=== PATIENT | female | born 1955 | race Caucasian/White ===

== ENCOUNTER → 2019-12-05 10:29 | Outpatient (CLI) | payer BC, SELFPAY ==
--- NOTE | ~2019-12-05 | US_ITS ---
EXAMINATION: US thyroid DATE: 12/05/2019 10:54 INDICATION: Hypothyroidism. TECHNIQUE: Multiple ultrasound images of the thyroid were obtained. COMPARISON: Ultrasound 04/06/2010 FINDINGS: The right thyroid lobe measures 2.1 x 1.0 x 0.9 cm. The left thyroid lobe measures 2.5 x 1.0 x 1.0 c m. The thyroid demonstrates diffusely heterogeneous echogenicity and increased vascularity. IMPRESSION: 1. Heterogeneous, hypervascular thyroid, consistent with chronic lymphocytic (Lianne) thyroiditis. Reviewed, dictated and finalized at location A. 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 Heterogeneous, hypervascular thyroid, consistent with chronic lymphocytic (H ashimoto) thyroiditis.
== END ==
PROVIDERS: PCP Family Medicine; Visit Provider Family Medicine
DX: R09.89 Other specified symptoms and signs involving the circulatory and respiratory systems (principal)
CPT/HCPCS: 76536

== ENCOUNTER 2021-01-13 09:29 | Outpatient (CLI) | payer BC, SELFPAY ==
--- NOTE | ~2021-01-13 | MM_ITS ---
EXAMINATION: MM screening [facility] w iveth HISTORY: Screening TECHNIQUE: Craniocaudal and mediolateral oblique 3-D tomosynthesis images were obtained and synthetic 2-D images were generated. CAD analysis was submitted and interpreted. COMPARISON: Comparison to multiple prior studies sequentially, with oldest reviewed study dated 12/30. BREAST PARENCHYMAL COMPOSITION: There are scattered areas of fibroglandular density. FINDINGS: There is no evidence of suspicious mass, calcification, or architectural distortion to sugg est malignancy in either breast. There has been no suspicious interval change. IMPRESSION: 1. No mammographic evidence of malignancy. 2. Recommend routine screening mammography in one year. BI-RADS Category 1: Negative Reviewed, dictated and finalized at location A.
== END 2021-01-13 09:30 | disposition home or self-care (01) ==
LOC: ANHIMG 09:31
PROVIDERS: PCP Family Medicine; Visit Provider Family Medicine
DX: Z12.31 Encounter for screening mammogram for malignant neoplasm of breast (principal)
CPT/HCPCS: 77063; 77067

== ENCOUNTER 2021-07-12 09:07 | Outpatient (RCR) | payer BC, SELFPAY ==
[2021-07-12] MEDS: diphenhydrAMINE HCl CAP 25 MG CAPSULE PO (11:16)
[2021-07-12] MEDS: FAMOTIDINE 20 MG TABLET PO (11:16)
[2021-07-12] MEDS: ACETAMINOPHEN 325 MG TABLET 650 MG PO (11:16)
[2021-07-12 11:26] VITALS: BP 138/79; PULSE 81; RESP 18; TEMP 36.8; O2SAT 99
[2021-07-12 12:53] VITALS: BP 135/81
--- NOTE | 2021-07-13 16:17 | PC.NURSE ---
Patient states she feels much better after her covid infusion.
== END 2021-07-12 16:30 | disposition home or self-care (01) ==
LOC: AMCINF 09:07
PROVIDERS: PCP Family Medicine; Referring Provider Physician Assistant Medical; Visit Provider Internal Medicine Hematology & Oncology
DX: Z23 Encounter for immunization (principal); U07.1 COVID-19; I10 Essential (primary) hypertension; D84.9 Immunodeficiency, unspecified
CPT/HCPCS: A9270; J7050; M0243

== ENCOUNTER 2021-11-24 11:18 | Outpatient (CLI) | payer BC, SELFPAY ==
--- NOTE | ~2021-11-24 | XR_ITS ---
EXAMINATION: XR barium swallow DATE: 11/24/2021 12:18 INDICATION: Dysphagia TECHNIQUE: The patient drank thick barium, gas-producing crystals, and thin barium. Fluoroscopy of th e hypopharynx and esophagus was performed. Fluoroscopy exposure time was 1.5 minutes. The DAP for thi s procedure was 3.796 Gycm2. COMPARISON: None. FINDINGS: There is no mass or stricture of the esophagus. Esophageal motility is normal. There is a s mall sliding hiatal hernia. There is a small amount of gastroesophageal reflux with provocative maneu vers. IMPRESSION: 1. No correlate for patient's dysphagia. 2. Small sliding hiatal hernia with minimal gastroesophageal reflux. Reviewed, dictated and finalized at location A. 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
--- NOTE | ~2021-11-24 | US_ITS ---
US thyroid INDICATION: Autoimmune thyroiditis TECHNIQUE: Real-time sonographic images of the thyroid gland were obtained. COMPARISON: Ultrasound dated 12/05/2019 FINDINGS: The right thyroid lobe measures 3.6 x 1.3 x 1.3 cm. The left thyroid lobe measures 3.2 x 1 .1 x 1.0 cm. There is heterogeneous echotexture and echogenicity throughout the thyroid gland. No dis crete nodules identified. Normal vascular flow is present. IMPRESSION: 1. Heterogeneous thyroid gland without discrete mass. Reviewed, dictated and finalized at location B. RINARY SURGERY TECHNICIAN
== END 2021-11-24 11:19 | disposition home or self-care (01) ==
LOC: ANHIMG 11:22
PROVIDERS: PCP Family Medicine; Visit Provider Family Medicine
DX: R13.10 Dysphagia, unspecified (principal); I10 Essential (primary) hypertension; E06.3 Autoimmune thyroiditis; K44.9 Diaphragmatic hernia without obstruction or gangrene
CPT/HCPCS: 74220; 76536

== ENCOUNTER 2022-01-26 08:42 | Outpatient (CLI) | payer BC, SELFPAY ==
--- NOTE | ~2022-01-26 | MM_ITS ---
EXAMINATION: MM screening [facility] BI w iveth HISTORY: Screening TECHNIQUE: Craniocaudal and mediolateral oblique 3-D tomosynthesis images were obtained and synthetic 2-D images were generated. CAD analysis was submitted and interpreted. COMPARISON: Comparison to multiple prior studies sequentially, with oldest reviewed study dated 12/2014. BREAST PARENCHYMAL COMPOSITION: There are scattered areas of fibroglandular density. FINDINGS: There is no evidence of suspicious mass, calcification, or architectural distortion to sugg est malignancy in either breast. There has been no suspicious interval change. IMPRESSION: 1. No mammographic evidence of malignancy. 2. Recommend routine screening mammography in one year. BI-RADS Category 1: Negative Reviewed, dictated and finalized at location A.
== END 2022-01-26 08:43 | disposition home or self-care (01) ==
LOC: ANHIMG 08:43
PROVIDERS: PCP Family Medicine; Visit Provider Family Medicine
DX: Z12.31 Encounter for screening mammogram for malignant neoplasm of breast (principal)
CPT/HCPCS: 77063; 77067

== ENCOUNTER 2022-06-14 19:38 | Emergency (ER) | payer BC, SELFPAY ==
[2022-06-14 19:40] VITALS: BP 149/80; O2SAT 100
== END 2022-06-14 19:49 | disposition left against medical advice (07) ==
PROVIDERS: PCP Family Medicine
DX: Z53.21 Procedure and treatment not carried out due to patient leaving prior to being seen by health care provider (principal)
CPT/HCPCS: 99199

== ENCOUNTER → 2022-06-23 10:16 | Outpatient (CLI) | payer BC, SELFPAY ==
--- NOTE | ~2022-06-23 | CT_ITS ---
EXAMINATION: CT sinus wo con DATE: 06/23/2022 10:31 INDICATION: Facial pain for 2 to 3 weeks, ringing in ears. Headaches. TECHNIQUE: Computed tomography (CT) of the paranasal sinuses was performed without contrast. Iterativ e reconstruction technique was employed. Exam dose: 296.82 mGy-cm total exam DLP. COMPARISON: None FINDINGS: Anteriorly there is mild leftward bowing of the nasal septum. Posteriorly there is minimal rightward bowing. Intralamellar cell of both middle nasal turbinates. The nasal turbinates are prominently swollen bila terally. The ostiomeatal units are patent bilaterally. With the exception of minimal mucoperiosteal thickening in the lower left maxillary sinus, the parana carlos sinuses are normally developed and aerated without soft tissue thickening or fluid level or soft tissue mass density. Mastoid air cells are normally developed and aerated bilaterally. IMPRESSION: Prominent soft tissue swelling of the nasal turbinates Intralamellar cell of both middle nasal turbinates Mild nasal septal bowing Patent ostiomeatal units Minimal mucoperiosteal thickening of the inferior aspect of the left maxillary sinus; otherwise calin l paranasal sinuses and mastoid air cells Reviewed, dictated and finalized at Location A. Reviewed, dictated and finalized at location B. IMPRESSION: Prominent soft tissue swelling of the nasal turbinates Intralamellar cell of both middle nasal turbinates Mild nasal septal bowing Patent ostiomeatal units Minimal mucoperiosteal thickening of the inferior aspect of the left maxillary sinus; otherwise normal paranasal sinuses and mastoid air cells
== END ==
PROVIDERS: PCP Family Medicine; Visit Provider Family Medicine
DX: R51.9 Headache, unspecified (principal)
CPT/HCPCS: 70486

== ENCOUNTER 2023-04-26 08:37 | Outpatient (CLI) | payer MEDICARE, OTHER, SELFPAY ==
--- NOTE | ~2023-04-26 | NM_ITS ---
EXAMINATION: NM stress w perf spect multi DATE: 04/26/2023 11:04 INDICATION: Shortness of breath TECHNIQUE: Rest images were obtained following intravenous administration of 10.2 mCi Tc99m tetrofosm in (Myoview). The patient performed an exercise activity. At peak exercise, 31.8 mCi Tc99m tetrofosmi n (Myoview) was administered intravenously, and stress images were obtained in supine position. Repea t post stress imaging was obtained in the prone position.. Data was reconstructed into short axis and horizontal and vertical long axis SPECT images. Gated SPECT images were also obtained. COMPARISON: None. FINDINGS: There is likely breast attenuation artifact along the anterior and anterolateral wall with supine darryl ging with normal activity in this region on the prone post stress imaging. There is no definite evide nce of reversible or fixed perfusion abnormality to suggest ischemia or infarction. There is normal left ventricular chamber size, wall motion and ejection fraction. Left ventricular ejection fraction measures 67%. IMPRESSION: 1. Normal myocardial perfusion at rest and during stress. 2. Left ventricular ejection fraction measuring 67%. Reviewed, dictated and finalized at location A.
--- NOTE | 2023-04-26 08:43 | EST_ITS ---
Patient Info Name: Mercedes Alvarez Age: 67 years : 1955 Gender: Female Ht: 64 in Wt: 125 lbs BSA: 1.60 m2 HR: 76 bpm BP: 156 / 88 mmHg Heart Rhythm: Sinus Rhythm Exam Date: 04/26/2023 9:30 AM Exam Location: [facility] Stress Patient Status: Outpatient Admit Date: 04/26/2023 Staff Ordering Physician: Barbara Ellison Attending Provider: Barbara Ellison Exercise Technologist: Mckenna Hyman CT Exercise Physician: Vaibhav Fritz DO Exam Type: CA stress test treadmill w NM Study Info Indications R06.02 - Shortness of breath A nuclear stress test was performed. Summary 1. 1. Negative Esteban exercise stress test for ischemic ST changes by ECG criteria. 2. 2. Good functional capacity, achieving 10 METs of workload. 3. 3. Baseline hypertension. 4. 4. Frequent ventricular ectopics. 5. 5. Appropriate HR response to exercise. 6. 6. Appropriate HR recovery at 1 minute post exercise. 7. 7. Nuclear scan to follow and will be reported separately. Please correlate with it. 8. 8. Patient informed of the above results. Protocol: Esteban Stress ECG Details Stage: REST Duration (min): 1 min : 57 sec Speed (mph): 0.0 Grade (%): 0 HR (bpm): 77 SBP (mmHg): 156 DBP (mmHg): 88 METS: --- Stage: REST Duration (min): 17 min : 3 sec Speed (mph): 1.0 Grade (%): 0 HR (bpm): 91 SBP (mmHg): 156 DBP (mmHg): 88 METS: --- Stage: STAGE 1 Duration (min): 1 min : 0 sec Speed (mph): 1.7 Grade (%): 10 HR (bpm): 99 SBP (mmHg): 156 DBP (mmHg): 88 METS: --- Stage: STAGE 1 Duration (min): 2 min : 0 sec Speed (mph): 1.7 Grade (%): 10 HR (bpm): 99 SBP (mmHg): 185 DBP (mmHg): 90 METS: --- Stage: STAGE 1 Duration (min): 3 min : 0 sec Speed (mph): 1.7 Grade (%): 10 HR (bpm): 100 SBP (mmHg): 186 DBP (mmHg): 88 METS: --- Stage: STAGE 2 Duration (min): 1 min : 0 sec Speed (mph): 2.5 Grade (%): 12 HR (bpm): 102 SBP (mmHg): 186 DBP (mmHg): 88 METS: --- Stage: STAGE 2 Duration (min): 2 min : 0 sec Speed (mph): 2.5 Grade (%): 12 HR (bpm): 108 SBP (mmHg): 183 DBP (mmHg): 89 METS: --- Stage: STAGE 2 Duration (min): 3 min : 0 sec Speed (mph): 2.5 Grade (%): 12 HR (bpm): 109 SBP (mmHg): 183 DBP (mmHg): 89 METS: --- Stage: STAGE 3 Duration (min): 1 min : 0 sec Speed (mph): 3.4 Grade (%): 14 HR (bpm): 116 SBP (mmHg): 171 DBP (mmHg): 84 METS: --- Stage: STAGE 3 Duration (min): 2 min : 0 sec Speed (mph): 3.4 Grade (%): 14 HR (bpm): 127 SBP (mmHg): 171 DBP (mmHg): 84 METS: --- Stage: STAGE 3 Duration (min): 2 min : 29 sec Speed (mph): 3.4 Grade (%): 14 HR (bpm): 126 SBP (mmHg): 171 DBP (mmHg): 84 METS: --- Stage: RECOVERY Duration (min): 0 min : 30 sec Speed (mph): 0.0 Grade (%): 0 HR (bpm): 117 SBP (mmHg): 172 DBP (mmHg): 97 METS: --- Stage: RECOVERY D
== END 2023-04-26 08:38 | disposition home or self-care (01) ==
PROVIDERS: PCP Family Medicine; Visit Provider Nurse Practitioner Family
DX: R06.02 Shortness of breath (principal); I10 Essential (primary) hypertension
CPT/HCPCS: 78452; 93017; A9502

== ENCOUNTER 2023-07-06 09:24 | Outpatient (CLI) | payer MEDICARE, OTHER, SELFPAY ==
--- NOTE | ~2023-07-06 | MM_ITS ---
EXAMINATION: MM screening [facility] BI w iveth HISTORY: Screening mammogram TECHNIQUE: Craniocaudal and mediolateral oblique 3-D tomosynthesis images were obtained and synthetic 2-D images were generated. CAD analysis was submitted and interpreted. COMPARISON: 01/26/2022, 01/13/2021, 01/18/2019 BREAST PARENCHYMAL COMPOSITION: There are scattered areas of fibroglandular density. FINDINGS: No suspicious mass, calcification, or architectural distortion are identified in either manfred ast to suggest malignancy. There has been no suspicious interval change. IMPRESSION: 1. No mammographic evidence of malignancy. 2. Recommend routine screening mammography in one year. BI-RADS Category 1: Negative Reviewed, dictated and finalized at location A.
== END 2023-07-06 09:25 | disposition home or self-care (01) ==
PROVIDERS: PCP Family Medicine; Visit Provider Family Medicine
DX: Z12.31 Encounter for screening mammogram for malignant neoplasm of breast (principal)
CPT/HCPCS: 77063; 77067

== ENCOUNTER → 2023-09-21 13:31 | Outpatient (CLI) | payer MEDICARE, OTHER, SELFPAY ==
--- NOTE | ~2023-09-21 | MR_ITS ---
MRI of the left shoulder Technique: Axial proton-density fat-sat images, coronal proton density fat-sat and T2 fat-sat images, and sagittal T1-weighted and T2 fat-sat images were acquired. Clinical History: Pain Findings: There is degenerative change, possible tear of the inferior acromioclavicular ligament. Cor acohumeral, coracoacromial, coracoclavicular ligaments are intact. There is thinning and probable partial thickness articular surface tearing of the very distal suprasp inatus tendon. Infraspinatus tendon is intact. There is mild to moderate tendinosis. Subscapularis te ndon is intact. Tendon of long head of the biceps is intact, with intra-articular tendinosis. Inferior glenohumeral ligament is intact. There is moderate glenohumeral joint degenerative change. S mall amount of fluid present in the subacromial/subdeltoid bursa. No muscle atrophy or edema. No definite labral tear seen. Impression: Probable moderate grade partial thickness articular surface tearing of the distal supraspinatus tendo n, which is moderately thinned. No full-thickness rotator cuff tear seen. Advanced AC joint degenerative change with possible tear of the inferior acromioclavicular ligament. Moderate glenohumeral joint degenerative change. Reviewed, dictated and finalized at location . UNITY RELATIONS LIAISON Impression: Probable moderate grade partial thickness articular surface tearing of the dist al supraspinatus tendon, which is moderately thinned. No full-thickness rotator cuff tear seen. Advanced AC joint degenerative change with possible tear of the inferior acromi oclavicular ligament. Moderate glenohumeral joint degenerative change.
== END ==
PROVIDERS: PCP Family Medicine; Visit Provider Orthopaedic Surgery
DX: M19.012 Primary osteoarthritis, left shoulder (principal)
CPT/HCPCS: 73221

== ENCOUNTER 2023-11-20 12:30 | Outpatient (RCR) | payer MEDICARE, OTHER, SELFPAY ==
--- NOTE | 2023-10-25 09:38 | PTOPEVAL1 ---
Assessment and note entered by Jose Guadalupe Boyce Evaluation Information Assessment Status Evaluation Diagnosis left shoulder pain, left rotator cuff tear Onset 10/25/22 Subjective Information Pt. reports that she developed left shoulder pain about 1 year ago. She reports that she has been watching grandchildren for the past 10 years. She states that she was recently lifting her youngest and noticed intense left shoulder pain. Pt. describes pain in the lateral brachial region. She reports she is left hand dominant. Pt. reports that she has been avoiding lifting her grandchildren to avoid increasing her pain. She states that she cannot sleep on the left shoulder due to pain. She states that she does use Tylenol on occasion for pain. She does enjoy regular exercise, but has avoided arm exercise due to pain . she states that home projects have been limited recently due to pain as well. She reports that her goal for therapy is to reduce her pain. Reported Pain Level Pain Score 3: Self Report Assessment PT Clinical Summary Pt. is a 68 year old female who presents to the clinic with left shoulder pain. She presents with impaired ROM, impaired strength, impaired postural awareness and pain. Objective finding on this date are consistent with left impingement syndrome and rotator cuff syndrome. Continued skilled PT is indicated in order to improve these areas to allow for improved comfort with IADL performance. Plan of Care Interventions Electrical Stimulation,Hot Pack/Cold Pack,Manual Therapy,Neuro Re-education,Patient/Caregiver Education,Therapeutic Activities,Therapeutic Exercise PT Services Indicated Yes Treatment Frequency and 2x/week x 8 visits Duration These treatments will address the objective and functional deficits as defined above. The patient will be advanced safely and appropriately in order for the patient to progress towards his/her prior level of function. Additional exercises will be introduced and as well as a comprehensive home exercise program upon discharge, if needed, ?to ensure carryover of functional gains achieved in the clinic. This treatment plan has been reviewed and agreement upon by the patient.
--- NOTE | 2023-10-25 09:40 | OPREHPOC ---
Outpatient Therapy Plan of Care This is a Multidisciplinary Plan of Care that may contain components documented by all disciplines (PT, OT, and ST.) PT Problem 1 PT Problem #1 Knowledge Deficit PT Goal 1 Goal Independent with a HEP addressing shoulder strength and postural awareness. Target Visit 2 PT Problem 2 PT Problem #2 Impaired Range of Motion PT Goal 1 Goal Pt. will achieve 170 degrees active left shoulder flexion Target Visit 8 PT Problem 3 PT Problem #3 Impaired Strength PT Goal 1 Goal Pt. will present with 4+/5 left shoulder flexion, ER and abduction Target Visit 8 PT Goal 2 Goal Pt. will demonstrate ability to lift 5# object overhead x 10 reps with the left u.e. with 1/10 pain at worst. Target Visit 8 PT Problem 4 PT Problem #4 Impaired Functional Mobil PT Goal 1 Goal Pt. will present with less than 10% limitation on the Quick DASH indicating improved overall function. Target Visit 8
--- NOTE | 2023-11-20 18:02 | PTOPDC ---
Assessment and note entered by Angel Maldonado, PT Evaluation Information Assessment Status Discharge Diagnosis left shoulder pain, left rotator cuff tear Onset 10/25/22 Subjective Information Reports that she feels she is overall doing better . She is only struggling with lifting and reaching objects far from her body at this time. She is still trying to decide if she is wanting to go through with surgery as she will need to see to the care of her following his surgery. She feels comfortable with HEP and plans to work with that at this time. Reported Pain Level Pain Score 1: Self Report Assessment PT Clinical Summary Patient has significantly improved in muscle strength and ROM at this time. She has been significantly better overall but may be showing some structural issues that would need to be addressed for long-term recovery. I encouraged her to have a conversation with her orthopedist to discuss her concerns. Plan of Care PT Services Indicated D/C to HEP
--- NOTE | 2023-11-20 18:02 | OPREHPOC ---
Outpatient Therapy Plan of Care This is a Multidisciplinary Plan of Care that may contain components documented by all disciplines (PT, OT, and ST.) PT Problem 1 PT Problem #1 Knowledge Deficit PT Goal 1 Goal Independent with a HEP addressing shoulder strength and postural awareness. Target Visit 2 Progress Met PT Problem 2 PT Problem #2 Impaired Range of Motion PT Goal 1 Goal Pt. will achieve 170 degrees active left shoulder flexion Target Visit 8 Progress Met PT Problem 3 PT Problem #3 Impaired Strength PT Goal 1 Goal Pt. will present with 4+/5 left shoulder flexion, ER and abduction Target Visit 8 Progress Partially Met Comment All but flexion PT Goal 2 Goal Pt. will demonstrate ability to lift 5# object overhead x 10 reps with the left u.e. with 1/10 pain at worst. Target Visit 8 Progress Met PT Problem 4 PT Problem #4 Impaired Functional Mobil PT Goal 1 Goal Pt. will present with less than 10% limitation on the Quick DASH indicating improved overall function. Target Visit 8 Progress Not Met
== END 2023-11-21 09:58 | disposition home or self-care (01) ==
LOC: ANHPT 12:30
PROVIDERS: PCP Family Medicine; Visit Provider Orthopaedic Surgery
DX: M75.102 Unspecified rotator cuff tear or rupture of left shoulder, not specified as traumatic (principal)
CPT/HCPCS: 97014; 97110; 97140; 97161; 97530; G0283

== ENCOUNTER 2024-11-18 11:00 | Outpatient (RCR) | payer MEDICARE, OTHER, SELFPAY ==
--- NOTE | 2024-09-09 07:41 | OPREHPOC ---
Outpatient Therapy Plan of Care This is a Multidisciplinary Plan of Care that may contain components documented by all disciplines (PT, OT, and ST.) PT Problem 1 PT Problem #1 Knowledge Deficit PT Goal 1 Goal / Goal Update [place] with HEP Target Visit 4 PT Goal 2 Goal / Goal Update Report no pain greater that 2/10 with active reaching activity for 2 consecutive weeks. Target Visit 10 PT Problem 2 PT Problem #2 Impaired Range of Motion PT Goal 1 Goal / Goal Update 1. Improve right shoulder active reach ROM to 165+ degrees to improve active reach 2. Improve R shoulder external rotation to 80+ degrees to improve dressing and self care activity 3. Demonstrate ability to perform active reach to back of head pain free for hygiene and self care Target Visit 10 PT Problem 3 PT Problem #3 Impaired Strength PT Goal 1 Goal / Goal Update Demonstrate R shoulder gross strength greater than 4-/5 for object manipulation and lifting as allowed per protocol Target Visit 10 PT Goal 1 Goal / Goal Update Improve QuickDASH score by 25% or greater for gross functional subjective improvement Target Visit 10
--- NOTE | 2024-09-09 08:54 | PTOPEVAL1 ---
Assessment and note entered by Angel Maldonado, PT Evaluation Information Assessment Status Evaluation Diagnosis M75.102 Tear of left rotator cuff post surgery ICD-10 Condition Codes (PT) M25.512 Onset 07/15/24 Subjective Information Reports that she had a couple of falls resulting in injury to a shoulder that she was already having issues with. Underwent rotator cuff repair on 07/15/24. Classified as a massive tear. She has returned to sleeping in her bed with head and shoulders elevated. Assessment PT Clinical Summary Patient presents with signs and symptom consistent with post operative rotator cuff tear. Patient has notable functional shoulder ORM loss and weakness affecting self care. Will benefit form skilled therapy to address these deficits and restore functional use of shoulder. Patient had major tear and given demographic for recovery will be progressed through gentle and functional ROM to tolerance. Plan of Care Interventions Hot Pack/Cold Pack,Manual Therapy,Neuro Re- education,Therapeutic Activities,Therapeutic Exercise PT Services Indicated Yes Treatment Frequency and 2x/week for 10 visits Duration These treatments will address the objective and functional deficits as defined above. The patient will be advanced safely and appropriately in order for the patient to progress towards his/her prior level of function. Additional exercises will be introduced and as well as a comprehensive home exercise program upon discharge, if needed, ?to ensure carryover of functional gains achieved in the clinic. This treatment plan has been reviewed and agreement upon by the patient.
[2024-10-11 13:30] VITALS: BP_SYST 105
--- NOTE | 2024-10-11 14:17 | OPREHPOC ---
Outpatient Therapy Plan of Care This is a Multidisciplinary Plan of Care that may contain components documented by all disciplines (PT, OT, and ST.) PT Problem 1 PT Problem #1 Knowledge Deficit PT Goal 1 Goal / Goal Update [place] with HEP 10-11-24 progress goal met continue towards to progress HEP Target Visit 19 PT Goal 2 Goal / Goal Update Report no pain greater that 2/10 with active reaching activity for 2 consecutive weeks. 10-11-24 progress goal not met continue towards goal Target Visit 19 PT Problem 2 PT Problem #2 Impaired Range of Motion PT Goal 1 Goal / Goal Update 1. Improve right shoulder active reach ROM to 165+ degrees to improve active reach 2. Improve R shoulder external rotation to 80+ degrees to improve dressing and self care activity 3. Demonstrate ability to perform active reach to back of head pain free for hygiene and self care 10-11-24 progress improved but goals not achieved continue towards goals Target Visit 19 PT Problem 3 PT Problem #3 Impaired Strength PT Goal 1 Goal / Goal Update Demonstrate R shoulder gross strength greater than 4-/5 for object manipulation and lifting as allowed per protocol 10-11-24 progress goal not met continue towards Target Visit 19 PT Goal 1 Goal / Goal Update Improve Quick DASH score by 25% or greater for gross functional subjective improvement 10-11-24 progress goal not met NEW GOAL: Quick DASH rating of 20% limitation in activity level Target Visit 19
--- NOTE | 2024-10-11 14:17 | PTOPPROG ---
Assessment and note entered by Joanne David, PT Assessment Status Progress Diagnosis M75.102 Tear of left rotator cuff post surgery ICD-10 Condition Codes (PT) Pain in left shoulder M25.512 Onset 07/15/24 Subjective Information frustrated by the continued pain in shoulder, was hoping that it would be better by now; last week, hit L shoulder on door frame with her puppy under her feet; have been doing all of the exercises at home; see the dr next week. PAIN: range in the past week 0-6/10; lateral- proximal shoulder; very tender to touch over top of shoulder joint; increase pain: moving arm or using arm decrease pain: tylenol, heat, ice sleeping is not disrupted due to shoulder pain Assessment PT Clinical Summary Mercedes has received 9 PT sessions. Compared to the initial evaluation: pain rating now 0-6/10; self assessment with Quick DASH rating from 50 to 32% limitation in activity level; increase in L shoulder ROM and education for HEP and posture with motions. L shoulder active ROM standing/passive in supine: flexion: 85/150'; abduction 80'/105'; IR- reach behind back, palm to waist and ER- reaching behind head, palm to behind ear; in supine with shoulder abduction ~80': IR: 50', and ER 50'. The goals were partially met. Continue treatment, progression of activity per dr orders. Plan of Care Interventions Hot Pack/Cold Pack,Manual Therapy,Neuro Re- education,Therapeutic Activities,Therapeutic Exercise PT Services Indicated Yes Treatment Frequency and 1-2x/wk for 10 visits Duration These treatments will address the objective and functional deficits as defined above. The patient will be advanced safely and appropriately in order for the patient to progress towards his/her prior level of function. Additional exercises will be introduced and as well as a comprehensive home exercise program upon discharge, if needed, ?to ensure carryover of functional gains achieved in the clinic. This treatment plan has been reviewed and agreement upon by the patient.
--- NOTE | 2024-11-18 11:48 | PTOPDC ---
Assessment and note entered by Joanne David, PT Assessment Status Discharge Diagnosis M75.102 Tear of left rotator cuff post surgery ICD-10 Condition Codes (PT) Pain in left shoulder M25.512 Onset 07/15/24 Subjective Information have been using her arms more with cleaning out basement--lifting, carrying things; is doing OK with everything at home, but lifting; have been doing the exercises at home; Reported Pain Level Pain Score Self Report Additional Pain Score Comments pain range in the past few days 0-5/10; lateral- proximal humerus increase pain: lifting and using L arm; lie on L side decrease pain: sit, rest, ice, muscle cream, tylenol is able to sleep through the night; Assessment PT Clinical Summary Mercedes has received a total of 19 PT sessions. Her pain rating is 0-6/10; self assessment functional score with Quick DASH rating of 14% limitation in activity level; she reports sleeping is good and doing all of her usual activities but lifting; Active ROM of shoulder in standing: flexion 130', abduction 135'; IR- reaching behind back, thumb to distal scapula and ER- reaching behind head, fingers to cervical spine. Strength in standing, 5 reps: flexion to 90' with 3# hand wt; abduction to 90' with 2# hand wt and elbow flexion/extension 7# hand wt. Education completed for HEP. The goals were achieved, except pain rating at worst rating. Discharge PT. She is to continue with her HEP. Plan of Care PT Services Indicated No
== END 2024-11-18 14:51 | disposition home or self-care (01) ==
LOC: ANHPT 11:00
PROVIDERS: PCP Family Medicine
DX: M75.102 Unspecified rotator cuff tear or rupture of left shoulder, not specified as traumatic (principal)
CPT/HCPCS: 97014; 97110; 97140; 97161; 97530; G0283

== ENCOUNTER 2025-02-13 12:32 | Outpatient (CLI) | payer MEDICARE, OTHER, SELFPAY ==
--- NOTE | ~2025-02-13 | XR_ITS ---
EXAMINATION: XR chest 2V 02/13/2025 13:23 INDICATION: Shortness of breath PROCEDURE: 2 view chest COMPARISON: 04/18/2016 FINDINGS: The lungs are clear. The cardiomediastinal silhouette is within normal limits. There are no pleural effusions. There is no pneumothorax suspected. IMPRESSION: 1: NO ACUTE CARDIOPULMONARY DISEASE. Reviewed, dictated and finalized at location A.
== END 2025-02-13 12:33 | disposition home or self-care (01) ==
PROVIDERS: PCP Family Medicine; Visit Provider Student in an Organized Health Care Education/Training Program
DX: R06.02 Shortness of breath (principal)
CPT/HCPCS: 71046

== ENCOUNTER 2025-03-11 13:15 | Outpatient (RCR) | payer MEDICARE, OTHER, SELFPAY ==
--- NOTE | 2025-02-17 13:07 | OPREHPOC ---
Outpatient Therapy Plan of Care This is a Multidisciplinary Plan of Care that may contain components documented by all disciplines (PT, OT, and ST.) PT Problem 1 PT Problem #1 Knowledge Deficit PT Goal 1 Goal / Goal Update [place] with HEP PT Problem 2 PT Problem #2 Pain PT Goal 1 Goal / Goal Update Report no pain greater than 1/10 with overhead reaching activity Target Visit 8 PT Problem 3 PT Problem #3 Impaired Range of Motion PT Goal 1 Goal / Goal Update 1. Achieve 90 degrees of left shoulder external rotation for full functional capsular mobility. Target Visit 8 PT Problem 4 PT Problem #4 Impaired Strength PT Goal 1 Goal / Goal Update 1. Improve Left shoulder external rotation strength to 4+/5 to improve shoulder stability 2. Improve lan periscapular strength to 4+/5 to improve scapular stabilization and prevent dyskinesia Target Visit 8
--- NOTE | 2025-02-17 13:07 | PTOPEVAL1 ---
Assessment and note entered by Angel Maldonado, PT Evaluation Information Assessment Status Evaluation Diagnosis S/P left rotator cuff repair ICD-10 Condition Codes (PT) Pain in left shoulder M25.512 Onset 07/15/24 Subjective Information Reports that she has been doing really well but git sick in November and has since had on and off shoulder pain and has been limited in some home activity. Feels that she could use some more strength, abduction motion, and pain relief. She also had a lot of coughing which caused her a lot of pain in she shoulder as well. Pain comes on with reaching away from body. Reported Pain Level Pain Score 0: Self Report Assessment PT Clinical Summary Patient presents with decently functional shoulder limitation. She has notable scapular dyskinesia and needs cueing for relaxations and proper activation of lan periscapular. Will benefit form skilled therapy to address end range capsular comfort and restore shoulder stability and scapular motion for improved pain free functional motion. Plan of Care Interventions Manual Therapy,Neuro Re-education,Therapeutic Activities,Therapeutic Exercise PT Services Indicated Yes Treatment Frequency and 1x/week for 6 visits Duration These treatments will address the objective and functional deficits as defined above. The patient will be advanced safely and appropriately in order for the patient to progress towards his/her prior level of function. Additional exercises will be introduced and as well as a comprehensive home exercise program upon discharge, if needed, ?to ensure carryover of functional gains achieved in the clinic. This treatment plan has been reviewed and agreement upon by the patient.
--- NOTE | 2025-08-18 13:38 | PCPTNOTE ---
Patient last present for physical therapy on 03/11/25. Patient has not returned and is discharged for therapy at this time. Please refer to last treatment note for discharge status.
== END 2025-05-18 23:59 | disposition home or self-care (01) ==
LOC: ANHPT 13:15
PROVIDERS: PCP Family Medicine
DX: Z48.89 Encounter for other specified surgical aftercare (principal); M25.512 Pain in left shoulder
CPT/HCPCS: 97110; 97140; 97161

== ENCOUNTER 2025-06-25 09:10 | Outpatient (CLI) | payer MEDICARE, OTHER, SELFPAY ==
--- NOTE | ~2025-06-25 | MM_ITS ---
EXAMINATION: MM screening [facility] w iveth HISTORY: Screening TECHNIQUE: Craniocaudal and mediolateral oblique 3-D tomosynthesis images were obtained and synthetic 2-D images were generated. CAD analysis was submitted and interpreted. COMPARISON: 01/26/2022 BREAST PARENCHYMAL COMPOSITION: The breasts are heterogeneously dense, which may obscure small masses. FINDINGS: There is no evidence of suspicious mass, calcification, or architectural distortion to suggest malignancy. There has been no suspicious interval change. IMPRESSION: 1. No mammographic evidence of malignancy. Recommend routine screening mammography in one year. BI-RADS Category 2: Benign finding(s) Reviewed, dictated and finalized at location Q. IMPRESSION: 1. No mammographic evidence of malignancy. Recommend routine screening mammogra phy in one year. BI-RADS Category 2: Benign finding(s)
--- OUTSIDE RECORDS SUMMARY | 2025-06-25 09:52 | XMS_ITS | Clinical Summary ---
Author Organization [facility] Address [address] [place] [address] Care Team Providers Care Dry Finisher Name Role Phone Adriana Salinas MD Primary Care Provider + Allergies Active Allergy Reactions Criticality Noted Date Comments Amlodipine Unknown Low 01/10/2024 Ibuprofen Unknown 07/03/2024 Etodolac Unknown Meloxicam Unknown Low 01/10/2024 Medications Lactobacillus acidophilus capsuleIndicatio ns:gut health Take 1 tablet by mouth daily before breakfast Active calcium carbonate/vitami n D3 (CALCIUM 500 + D ORAL)Indications :bone health Take 1 tablet by mouth 2 (two) times a day Active omega 0-wwb-gjx-fish oil 100-160-1,000 mg capsuleIndicatio ns:health Take 1 tablet by mouth daily before breakfast Active glucosamine/sreekanth dr guru Ramos sod (OSTEO BI-FLEX ORAL)Indications :joint health Take 1 tablet by mouth 2 (two) times a day Active cholecalciferol (VITAMIN D-3) 5,000 unit tabletIndication s:Prevention of Vitamin D Deficiency Take 1 tablet (5,000 Units total) by mouth daily before breakfast Active turmeric root extract 500 mg capsuleIndicatio ns:health Take 500 mg by mouth daily before breakfast Active Synthroid 88 mcg tabletIndication s:hypothyroidism Take 1 tablet (88 mcg total) by mouth testing and regulating technician before breakfast 2 Active verapamil SR (CALAN SR) 120 mg CR tabletIndication s:hypertension Take 1 tablet (120 mg total) by mouth daily before breakfast 2 Active clotrimazole 1 % cream APPLY TOPICALLY 1 APPLICATION EVERY 12 HOURS 4 Active magnesium gluconate 200 mg tabletIndication s:sleep Take 1 tablet (200 mg total) by mouth nightly Active UNABLE TO FINDIndications: health Take 1 each by mouth daily before breakfast Med Name: gabe aceves Active acetaminophen (TYLENOL) 500 mg tablet Take 2 tablets (1,000 mg total) by mouth every 6 (six) hours 60 tablet 1 4 Active cyclobenzaprine (FLEXERIL) 10 mg tablet Take 1 tablet (10 mg total) by mouth 3 (three) times a day as needed for muscle spasms for up to 10 days 30 tablet 4 Active oxyCODONE (ROXICODONE) 5 mg immediate release tabletIndication s:Pain Take 1-2 tablets (5-10 mg total) by mouth every 4 (four) hours as needed for pain 40 tablet 4 Active Active Problems Problem Noted Date Diagnosed Date Tear of left rotator cuff 07/02/2024 Osteoarthritis 06/17/2024 Pain in joint of left shoulder 09/14/2023 Age-related osteoporosis wit hout current pathological fracture 03/04/2021 Arthritis of foot 03/02/2017 Metatarsalgia 03/02/2017 Sesamoiditis 03/02/2017 Pain of foot 01/25/2017 Thyroid activity decreased 09/30/2015 Fracture of multiple ribs 09/30/2015 Hypothyroidism 02/15/2014 Overview (01/04/2017): HYPOTHYROIDISM NOS Non-toxic multinodular goiter 02/15/2014 Overview (01/04/2017): NONTOX MULTINODUL GOITER Osteopenia 04/18/2012 Immunizations Immunization Administration Dates Next Due Moderna SARS-CoV-2 Monovalent Vaccination (12+ Y RS) 12/01/2020,10/29/2020 Surgical History Surgery Date Site/Laterality Comments HYSTERECTOMY 10/02/1993 - 10/01/1994 TONSILLECTOMY OTHER SURGICAL HISTORY D&C IMPLANT 10/02/2013 - 10/01/2014 Medical History Medical History Date Comments Disorder of thyroid Thyroid dise ase Delayed emergence from general anesthesia 1993 with hysterectomy Family History Medical History Relation Name Comments Lung cancer Father Cancer -lung; Osteoporosis Mother Family history of osteoporosis - (Added by TW Conv) Allergic rhinitis Other Family History Thyroid disease Other Family History Family his tory of Thyroid disorder; Broken bones Neg Hx Hip fracture Neg Hx Kyphosis Neg Hx Scoliosis Neg Hx Relation Name Status Comments Father Mother Other Family History Social History Tobacco Use Types Packs/Day Years Used Date Smoking Tobacco: Former Cigarettes Q uit: 1974 Passive Smoke Exposure: Past Smokeless Tobacco: Never Alcohol Use Standard Drinks/Week Comments Yes 0 (1 standard drink = 0.6 oz pur e alcohol) AUDIT-C Answer Date Recorded Q1: How often do you have a drink containing alcohol? Never 07/15/2024 Q2: How many drinks containi ng alcohol do you have on a typical day when you are drinking? Patient does not drink Q3: How often do you have si x or more drinks on one occasion? Never 07/15/2024 Personal Safety Answer Date Recorded Have you ever been in or are you currently in a harmful physical or emotional relationship or is someone making you feel afraid or unsafe? 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 Gender Identity Female 07/17/2018 10:12 AM CDT Sexual Orientation Not on file Obstetrics History Last Filed Vital Signs Vital Sign Reading Time Taken Comments Blood Pressure 163/87 07/15/2024 1:40 PM CDT Pulse 71 07/15/2024 1:40 PM CDT Temperature 36.4 C (97.5 F) 07/15/2024 12:55 PM CDT Respiratory Rate 23 07/15/2024 1:40 PM CDT Oxygen Saturation 96% 07/15/2024 1:40 PM CDT Inhaled Oxygen Concentration - - Weight 56.7 kg (125 lb) 07/26/2024 1:13 PM CDT Height 160 cm (5' 3) 07/26/2024 1:13 PM CDT Body Mass Index 22.14 07/26/2024 1:13 PM CDT Plan of Treatment Health Maintenance Due Date Last Done Comments Breast Cancer Screening-Mammogram 1955 Colon Cancer Screening-Colonoscopy 1955 Depression Screening 1955 Fall Risk Assessment 1955 Hepatitis C Screening 1955 DTaP/Tdap/Td Vaccine (1 - Tdap) 1964 Hepatitis B Screening 1971 Zoster Vaccine (1 of 2) 2003 Well Visit 65+ 2018 Pneumococcal vaccine 65+ (2 of 2 - PCV20 or PCV21) 02/22/2020 02/21/2019 Covid-19 Vaccine (3 - 2024-2 6 season) 2025 12/01/2020, 10/29/2020 Influenza Vaccine (#1) 2025 Osteoporosis Screening-Bone Density Scan 07/26/2026 07/26/2024, 07/05/2023, 04/26/2022, Additional history exists Medical Devices Implanted Type Area Resident In Diagnostic Radiology Device Identifier Shelf Expiration Date Model / Serial / Lot [employer] Suture [place] Double Loaded Knotless Fibertak 2.6mm Ar-[id number] - [id number] Implanted:Qty : 1 on 07/15/2024 by Meng Baez MD at [facility] Left: Shoulder [employer] [id number] 03/01/2029 AR-[id number] / / [id number] [employer] Suture [place] Double Loaded Knotless Fibertak 2.6mm Ar-[id number] - [id number] Implanted:Qty : 1 on 07/15/2024 by Meng Baez MD at [facility] Left: Shoulder [employer] [id number] 03/01/2029 AR-3632SP / / [id number] [employer] Suture [place] Triple Loaded Knotless Fibertak 2.6mm Ar-3633sp - [id number] Implanted:Qty : 1 on 07/15/2024 by Meng Baez MD at [facility] Left: Shoulder [employer] [id number] 12/30/2028 AR-3633SP / / [id number] [employer] Swivelock C 4.75mm 19.1mm Closed Eyelet Vent [place] Suture Ar-2324bcc - [id number] Implanted:Qty : 1 on 07/15/2024 by Meng Baez MD at [facility] Left: Shoulder [employer] [id number] 03/31/2028 AR-[id number] / / [id number] [employer] Swivelock C 4.75mm 19.1mm Closed Eyelet Vent [place] Suture Ar-2324bcc - [id number] Implanted:Qty : 1 on 07/15/2024 by Meng Baez MD at [facility] Left: Shoulder [employer] [id number] 03/31/2028 AR-[id number] / / [id number] Procedures Procedure Name Priority Date/Time Associated Diagnosis Comments DEXA TBS AXIAL SKELETON BONE DENSITY 1 OR MORE SITES Schedule Routine, Read Routine (OP Routine) 07/26/2024 1:18 PM CDT Age-related osteoporosis without current pathological fracture from Last 3 Months or Most Recently Relevant to Health Maintenance Results * Dexa TBS Axial Skeleton Bone Density 1 or more sites (07/26/2024 1:18 PM CDT) Anatomical Region Laterality Modality Wrist, Body N/A Radiographic Noemi ging Narrative 08/11/2024 7:59 PM MD PHYSICIAN DERMATOLOGIST Patient Name: Mercedes Alcala Date of : 1955 Date of scan: 07/26/2024 Bone mineral density was performed on a HoloXero Discovery Densitometer. Based on machine cross-calibration and precision studies the least significant changes of this densitometer is 0.024 g/cm2 at the spine, 0.020 g/cm2 at the total proximal femur, and 0.014g/cm2 at the forearm. HISTORY: This is a 69 y.o. postmenopausal female with a history of low bone mass, thyroid disease, and vitamin D deficiency. She reports that she quit smoking about 50 years ago. Her smoking use included cigarettes. She has been exposed to tobacco smoke. She has never used smokeless tobacco. Currently on treatment with calcium, vitamin D, and thyroid hormone and previously treated with alendronate (Fosamax). INDICATIONS: Menopause status, vitamin D deficiency, and history of low bone mass. FINDINGS: BONE MINERAL DENSITY OF THE LUMBAR SPINE Bone Mineral Density (BMD) of the lumbar spine was measured from L1 and L4 and the average density was calculated to be 0.861 gm/cm2. This corresponds to a T-score (standard deviations from the mean of young adults) of -1.6. When compared to the previous study of 07/05/2023 there has been no significant changes in bone density. BONE MINERAL DENSITY OF THE PROXIMAL FEMUR Bone Mineral Density (BMD) of the left hip total was found to be 0.702 gm/cm2. This corresponds to a T-score standard deviations from the mean of young adults of -2.0. Femoral neck is 0.591 gm/cm2 with a T-score (standard deviations from the mean of young adults) of -2.3. When compared to the previous study of 07/05/2023 there has been no significant changes in bone density. BONE MINERAL DENSITY OF THE FOREARM Bone Mineral density (BMD) of the right proximal 1/3 of the radius measures 0.462 gm/cm2. This corresponds to a T-score (standard deviations from the mean of young adults) of -3.9. When compared to the previous study of 07/05/2023 there has been no significant changes in bone density. A forearm bone density study was performed in addition to the routine study because of the need to provide a comparison to the previous exam . SUMMARY: Bone mineral density shows evidence of osteoporosis and marked increase risk of fracture. There has been no significant changes in bone density since previous measurement. The lumbar spine Trabecular Bone Score is 1.290 which suggests normal bone microarchitecture, compared to the general population. Final decisions regarding diagnostic or therapeutic recommendations should include BMD, TBS, additional clinical risk factors as well the clinical context of the patient. Please see attached TBS results for further details. ADDITIONAL COMMENTS: Postmenopausal Women and Men Over 50: Diagnostic criteria: Osteoporosis: BMD at or below -2.5 T-score; Osteopenia (low bone mass): BMD between -1.0 and -2.5 T-score. If the patient has a history of a fragility fracture, a fracture that occurred with trauma equivalent to a fall from a standing position or less, then the diagnosis is osteoporosis regardless of bone density. The history and data sections of the bone mineral density scan were prepared by Geneva Casas (R)(CBDT) who is accredited by the International Society of Clinical Densitometry. The overall patient assessment and scan interpretation were performed by Amy Loco M.D. who is certified by the International Society of Clinical Densitometry. [id number] Elsa Mccall DNP IMG DXA PROCEDURES Final Result from Last 3 Months or Most Recently Relevant to Health Maintenance Insurance MEDICARE [facility] MEDICARE [facility] Care Teams Dry Finisher Relationship Specialty Start Date End Date Adriana Salinas MD PCP - General Family Medicine 11/26/19
== END 2025-06-25 09:11 | disposition home or self-care (01) ==
LOC: ANHFOHIMG 09:14
PROVIDERS: PCP Family Medicine; Visit Provider Family Medicine
DX: Z12.31 Encounter for screening mammogram for malignant neoplasm of breast (principal)
CPT/HCPCS: 77063; 77067